=== PATIENT | female | born 1965 ===

== ENCOUNTER 2017-06-03 07:45 | Day surgery (SDC) | payer MEDICAID ==
[2017-06-03 08:12] VITALS: BMI 27.4
[2017-06-03] MEDS ORDERED: Albuterol HFA 90 mcg/actuation (8 g) ONE (09:18)
[2017-06-03] MEDS ORDERED: Lidocaine Hydrochloride 5 ML INJ ONE (09:46)
[2017-06-03] MEDS ORDERED: Propofol 10 mg/ml Inj (20 ML) ONE (09:46)
[2017-06-03 10:24] VITALS: O2SAT 100
[2017-06-03 10:37] VITALS: TEMP 97
[2017-06-03 12:22] VITALS: BP 126/54; PULSE 65; RESP 15
== END 2017-06-03 11:59 | disposition home or self-care (01) ==
LOC: C.ENDO 07:45
PROVIDERS: ATTEND Internal Medicine Gastroenterology
DX: K64.8 Other hemorrhoids (principal)

== ENCOUNTER 2017-11-18 10:00 | Day surgery (SDC) | payer MEDICAID ==
[2017-11-18 10:26] VITALS: BMI 28.3
[2017-11-18] MEDS ORDERED: Propofol 10 mg/ml Inj (20 ML) ONE (11:33)
[2017-11-18 12:08] VITALS: TEMP 96.8; O2SAT 100
[2017-11-18 12:20] VITALS: RESP 10
[2017-11-18 13:20] VITALS: PULSE 54
[2017-11-18 13:24] VITALS: BP 145/77
== END 2017-11-18 13:15 | disposition home or self-care (01) ==
LOC: C.ENDO 10:00
PROVIDERS: ATTEND Internal Medicine Gastroenterology
DX: R13.10 Dysphagia, unspecified (principal); J45.909 Unspecified asthma, uncomplicated; E03.9 Hypothyroidism, unspecified; B19.20 Unspecified viral hepatitis C without hepatic coma; F31.9 Bipolar disorder, unspecified; F19.11 Other psychoactive substance abuse, in remission; Z79.52 Long term (current) use of systemic steroids; Z79.899 Other long term (current) drug therapy; K21.0 Gastro-esophageal reflux disease with esophagitis; K44.9 Diaphragmatic hernia without obstruction or gangrene; K29.70 Gastritis, unspecified, without bleeding
CPT/HCPCS: 43239; 84703; 88305; J2704

== ENCOUNTER 2019-01-27 20:21 | Emergency (ER) | payer MEDICAID ==
[2019-01-27 20:22] VITALS: BMI 28.3
[2019-01-27] MEDS ORDERED: Albuterol-Ipratrop 3 mg / 0.5 (3 ml) UD ONE ×2 (20:40→20:51)
[2019-01-27 20:57] VITALS: BP 142/83; RESP 20
--- NOTE | 2019-01-27 21:29 | C.PDOC ---
History Of Present Illness 53 y/o female with history of Asthma presents with exacerbation for the past week with little relief with inhaler. She is currently SOB but denies any chest pain. She denies any recent illness or sick contacts. She denies fever, chills, N/V, and abdominal pain. Time Seen by Provider: 01/27/19 20:54 Chief Complaint (Nursing): Shortness Of Breath History Per: Patient History/Exam Limitations: no limitations Onset/Duration Of Symptoms: Days (5) Current Symptoms Are (Timing): Still Present Exacerbating Factor(s): Coughing Current Respiratory Medications: Albuterol Severity: Moderate Pain Scale Rating Of: 6 Associated Symptoms: denies: Fever, Chills, Sweating, Chest Pain, Bloody Cough, Productive Cough, Heart Racing, Leg/Calf Pain, Ankle/Leg Swelling, Dizziness, Light-headedness, Tingling In Hands Or Face, Musle Spasms In Hands Or Feet Recent travel outside of the [place]: No Past Medical History Reviewed: Historical Data, Nursing Documentation, Vital Signs Vital Signs: Last Vital Signs Temp 97.3 F L 01/27/19 20:49 Pulse 85 01/27/19 20:49 Resp 20 01/27/19 20:53 BP 142/83 01/27/19 20:49 Pulse Ox 99 01/27/19 20:49 - Medical History PMH: Anxiety, Asthma, Bipolar Disorder, Bronchitis, Depression, Hypothyroidism, Schizophrenia Denies: Colonic Polyps, Chronic Kidney Disease, TIA Family History: States: Unknown Family Hx - Social History Hx Alcohol Use: No Hx Substance Use: No - Immunization History Hx Tetanus Toxoid Vaccination: No Hx Influenza Vaccination: Yes Hx Pneumococcal Vaccination: No Review Of Systems Constitutional: Negative for: Fever, Chills, Weakness Cardiovascular: Negative for: Chest Pain Respiratory: Positive for: Shortness of Breath Gastrointestinal: Negative for: Nausea Skin: Negative for: Rash Neurological: Negative for: Headache, Dizziness Physical Exam - Physical Exam Appears: Well, Non-toxic, No Acute Distress Skin: Normal Color, Warm Head: Atraumatic, Normacephalic Eye(s): bilateral: Normal Inspection Ear(s): Bilateral: Normal (TM intact AU) Nose: No Discharge Oral Mucosa: Moist Throat: No Erythema, No Exudate Neck: Normal, Supple Chest: Symmetrical Cardiovascular: Rhythm Regular Respiratory: Wheezing Gastrointestinal/Abdominal: No Bowel Sounds, No Soft, No Tenderness Neurological/Psych: Oriented x3, Normal Speech, Normal Cognition, Normal Motor, Normal Sensation ED Course And Treatment O2 Sat by Pulse Oximetry: 99 Medical Decision Making Medical Decision Making: Duoneb given Solu-Medrol given Wheezing improved Discharged with Prednisone 60mg Follow up with PMD in 1-2 days Return to ED if symptoms worsen Patient verbalized understanding and is in agreement with plan Disposition Counseled Patient/Family Regarding: Diagnosis, Need For Followup, Rx Given - Disposition Referrals: Delta Maldonado MD [Medical Doctor] - Disposition: HOME/ ROUTINE Disposition Time: 21:29 Condition: STABLE Additional Instructions: Follow up with Dr. Maldonado in 1-2 days Start Prednisone x 5 days Continue use of inhaler as needed Return to ED if symptoms worsen Prescriptions: predniSONE [predniSONE Tab] 60 mg PO DAILY #15 tab Instructions: Asthma, Adult (DC) Forms: [employer] 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 - Scribe Statement The provider has reviewed the documentation as recorded by the Scribe
[2019-01-27 21:49] VITALS: PULSE 88; TEMP 97.4
[2019-01-27 23:08] VITALS: O2SAT 99
== END 2019-01-27 21:47 | disposition home or self-care (01) ==
LOC: C.ER 20:21
DX: J45.901 Unspecified asthma with (acute) exacerbation (principal); E03.9 Hypothyroidism, unspecified; F20.9 Schizophrenia, unspecified
CPT/HCPCS: 96374; 99283; J2930